=== PATIENT | male | born 1985 | race Caucasian/White ===

== ENCOUNTER 2022-08-18 01:35 | Emergency (ER) | payer BC, SELFPAY ==
[2022-08-18 01:37] VITALS: BP 155/102; PULSE 130; RESP 20; TEMP 39.5; O2SAT 98; BMI 28.2
[2022-08-18 01:40] VITALS: O2SAT 96
--- NOTE | 2022-08-18 02:05 | EKG12_ITS ---
Test Reason : DYSRHYTHMIA Blood Pressure : / mmHG Vent. Rate : 117 BPM Atrial Rate : 117 BPM P-R Int : 132 ms QRS Dur : 070 ms QT Int : 294 ms P-R-T Axes : 063 012 014 degrees QTc Int : 410 ms Sinus tachycardia Nonspecific T wave abnormality Abnormal ECG Confirmed by VICKEY MUNSON, ANNIE ([id number]), editor [employer] LOY LOPEZ ([id number]) on 08/21/2022 10:55:32 AM Referred By: TENNILLE Confirmed By:LEYLA HURD MD
--- NOTE | 2022-08-18 02:06 | EDS_ITS ---
HPI History of Present Illness Chief Complaint: Shortness of Breath Informant: patient Associated Symptoms Associated Symptoms ED: cough Narrative Narrative: Patient with symptoms for the past 48 hours or so, tested positive for COVID at home test just prior to developing symptoms, he and his both testing positive, they did this because they are son was brought home from daycare with a cold and tested positive for COVID. Patient states he has been having myalgias, malaise, fevers and chills, cough, and some retrosternal pain in his chest when he coughs. He woke up tonight a little short of breath, his heart was racing he is very anxious, he called the on-call nurse, he got some advice. He did his own pulse ox at home, he states he was between 92 and 94% the majority of the time but at 1 point went down to 89% briefly, and due to all of this, was advised that he come to the emergency department. He is healthy otherwise, he has no known medical problems, and furthermore states after testing positive he did have a telemedicine consultation looking for an antiviral and was not prescribed it, which sounds appropriate to me since he is 26 years old, vaccinated against COVID with 4 separate injections, healthy, and a BMI of 28. He states he does not feel dyspneic like he did earlier right now, may be just a little. PFSH PFSH Medical History no medical history no medical history Home Medications NK 08/18/22 [History Last Taken Unknown] Allergy/AdvReac Type Severity Reaction Status Date / Time No Known Allergies Allergy Verified 08/18/22 01:40 Surgical History no surgical history Social History Smoking Status: Never smoker ROS ROS ED Constitutional Constitutional ED: Reports body ache(s), chills, fatigue, fever(s), headache(s) and malaise Eyes Eyes: Denies change in vision or diplopia ENT ENT ED: Denies rhinorrhea or sore throat Cardiovascular Cardiovascular: Reports chest pain; Denies palpitations Respiratory/Chest Respiratory/Chest: Reports cough, dyspnea and dyspnea on exertion Gastrointestinal Gastrointestinal: Reports diarrhea; Denies abdominal pain, nausea or vomiting Genitourinary Genitourinary ED: Denies dysuria or hematuria Musculoskeletal Musculoskeletal: Denies back pain or neck pain Integumentary Denies abscess or rash Neurologic Neurologic: Reports headache(s); Denies paresthesias or weakness Psychiatric Psychiatric: Denies depression, suicidal ideation or suicidal thoughts EXAM Physical Exam Const Vital Signs: 08/18/22 01:37 08/18/22 01:40 Temperature 103.1 F H Temperature Source Oral Pulse Rate 130 H Respiratory Rate 20 H Respiratory Effort Normal Non-Labored Respiratory Depth Normal Respiratory Pattern Normal Blood Pressure 155/102 H Blood Pressure Mean 119 Pulse Ox 98 Oxygen Delivery Method Room Air Room Air Positive well nourished and well developed Constitutional Narrative: no distress General Appearance ED: well developed and NAD HEENT Reports moist mucous membranes normocephalic and atraumatic Eyes PERRL and EOMs intact bilaterally Neck full ROM, no lymphadenopathy and supple Resp normal respiratory effort and clear to auscultation bilaterally Effort and Inspection: able to speak in complete sentences Cardio regular rate, regular rhythm and no murmurs Rate: tachycardic GI non-tender and non-distended Auscultation: normoactive bowel sounds Palpation: soft Back/Spine no CVA tenderness General Back: other FROM Extremity normal to inspection and no calf tenderness General Extremety ED: Negative for edema, pulses abnormal or tenderness General Extremity: Negative for edema or pulses abnormal Neuro oriented x3, CN's II-XII intact bilaterally, no sensory deficits noted and gait normal Sensorium / Orientation: awake and alert Motor Exam: strength 5/5 throughout Psych Mood & Affect: anxious Skin no rashes or lesions noted and no wounds MDM MDM MDM Narrative Medical decision making narrative: EKG just shows sinus tachycardia, I did a D-dimer evaluating for pulmonary embolus prior to doing any imaging, it was abnormal. So the chest x-ray was s kipped and we obtained CT angiography of the chest. I reviewed the images it appeared normal showing no signs of interstitial pneumonitis, nor pulmonary embolus. Radiology was in agreement that it was negative, and I agree with their interpretation. Patient was feeling much better after getting Tylenol and IV Toradol, he is no longer dyspnea, I suspect this was all side effect of the fevers and symptoms of COVID. Supportive care advised, he is not a candidate for the oral antiviral medications as they are under EUA at this time, and you must meet strict criteria which he does not meet due to his BMI being under 30 and having no risk factors. Lab Data Attestation: I reviewed the patient's lab results. Labs: Laboratory Results - last 24 hr 08/18/22 02:25 D-Dimer Quant (PE/DVT) 0.70 H* Radiography Diagnostic Testing: Clinical Impression(s) from Imaging Studies Chest CTA 08/18/22 02:54 IMPRESSION: No evidence of pulmonary embolism or other acute abnormality in the chest. Electronically Signed: Evan Soriano MD at 4:13 EDT , Rhythm Strip Rhythm Strip: Sinus Tach Rate: 120 Ectopy: None EKG Initial EKG: Attestation: I personally reviewed and interpreted this EKG as follows: Interpretation: No Acute Injury Pattern, Sinus Tachycardia and Non- Specific ST Changes (Lateral precordial leads and some inferiorly, no ST elevation or depression) Discharge Plan Triage Chief Complaint: Shortness of Breath ED Provider: Cuauhtemoc Tim Dx/Rx/DC Orders Clinical Impression: COVID-19 Instructions: Coronavirus Disease 2019 (COVID-19): Caring for Yourself or Others Prescriptions: No Action NK Primary Care Provider: Lorne Sahu Referrals: Lorne Sahu MD [Primary Care Provider] - As Needed Activity Restrictions/Additional Instructions: Try to get a home portable pulse oximeter and closely watch your oxygen levels periodically. If you stay below 90% for more than a minute or so, and/or you are feeling like your breathing is getting worse, return to the emergency department for further evaluation. Currently, CDC recommendations state that you should stay home through day 5 of symptoms, then as long as symptoms are improving, if you need to go to work or somewhere else you may for days 6-10 as long as you are wearing a mask the entire time. If you are feeling better after day 10 you may resume life is normal. Disposition Disposition: Home, Self Care
[2022-08-18] MEDS: Acetaminophen 500 MG Tablet 1000 MG PO (02:22)
[2022-08-18] MEDS: Ketorolac 15 MG/ML Vial IV (02:24)
--- NOTE | 2022-08-18 02:54 | CT_ITS ---
EXAM: CT ANGIOGRAPHY CHEST WITHOUT AND WITH INTRAVENOUS CONTRAST CLINICAL INDICATION: covid, sob, elevated d-dimer TECHNIQUE: Helically acquired angiography images were obtained of the chest without and with intravenous contrast. This CT exam was performed using one or more of the following dose reduction techniques: automated exposure control, adjustment of the mA and/or kV according to patient size, and/or use of iterative reconstruction technique. This report was created using [employer] report generation technology. MIP reconstructed images were created and reviewed. CONTRAST: IV 100mL [id number] COMPARISON: None. FINDINGS: PULMONARY ARTERIES: Unremarkable. Normal in caliber. No evidence of pulmonary embolism. AORTA: Unremarkable. Normal in caliber. No evidence of dissection. GREAT VESSELS OF AORTIC ARCH: Unremarkable. Normal in caliber. No evidence of dissection. LUNGS AND PLEURAL SPACES: Unremarkable. No mass. No consolidation or edema. No pleural effusion or thickening. No pneumothorax. HEART: Unremarkable. Heart size is normal. No pericardial effusion. No signs of right heart strain, ratio of right ventricle to left ventricle measures less than 1. MEDIASTINUM: Unremarkable. No mediastinal or hilar adenopathy. Esophagus is unremarkable. No hiatal hernia. THYROID: Unremarkable. No thyroid lesions. BONES/JOINTS: Unremarkable. No suspicious lytic or blastic abnormality. CT/CTA Chest W/WO Contrast IMPRESSION: No evidence of pulmonary embolism or other acute abnormality in the chest. Electronically Signed: Evan Soriano MD at 4:13 EDT ,
[2022-08-18 04:30] VITALS: PULSE 92; RESP 18; O2SAT 96
== END 2022-08-18 04:31 | disposition home or self-care (01) ==
PROVIDERS: Emergency Provider Emergency Medicine; PCP Internal Medicine; Visit Provider Emergency Medicine
DX: U07.1 COVID-19 (principal)
CPT/HCPCS: 71275; 85379; 93005; 96374; 99285; Q9967; A4216

== ENCOUNTER → 2022-12-25 | Outpatient (CLI) | payer BC, SELFPAY ==
[2022-12-29 09:08] LABS: Alternaria tenuis <0.10 kU/L (Class 0); Ash, White 0.13 kU/L (Class 0/I); Aspergillus fumigatus <0.10 kU/L (Class 0); Birch <0.10 kU/L (Class 0); Black Walnut 0.25 kU/L (Class 0/I); Cat Hair / Dander,Stand <0.10 kU/L (Class 0); Cedar, Mountain <0.10 kU/L (Class 0); Cladosporium herbarum <0.10 kU/L (Class 0); Cockroach, American <0.10 kU/L (Class 0); Cottonwood <0.10 kU/L (Class 0); D farinae Mite <0.10 kU/L (Class 0); D pteronyssinus <0.10 kU/L (Class 0); Dog Epithelia <0.10 kU/L (Class 0); Elm, American White 0.29 kU/L (Class 0/I); Immunoglobulin E 50 IU/mL (6-495); Maple/Box Elder <0.10 kU/L (Class 0); Mouse Urine <0.10 kU/L (Class 0); Mulberry, White <0.10 kU/L (Class 0); Oak, White 0.17 kU/L (Class 0/I); Pecan 0.31 kU/L (Class 0/I); Penicillium Notatum <0.10 kU/L (Class 0); Pigweed, Rough <0.10 kU/L (Class 0); Ragweed, Short/Common <0.10 kU/L (Class 0); Russian Thistle <0.10 kU/L (Class 0); Sheep Sorrel <0.10 kU/L (Class 0); Sycamore, American <0.10 kU/L (Class 0); Timothy Grass 2.67 kU/L (Class III)
== END | disposition home or self-care (01) ==
LOC: LAB 15:45
PROVIDERS: PCP Internal Medicine; Referring Provider Internal Medicine Pulmonary Disease; Visit Provider Internal Medicine Pulmonary Disease
DX: J30.9 Allergic rhinitis, unspecified (principal); R06.02 Shortness of breath
CPT/HCPCS: 36415; 82785; 86003